=== PATIENT | female | born 1930 | race Caucasian/White ===

== ENCOUNTER 2017-01-26 22:39 | Observation (INO) | payer MEDICARE, OTHER ==
[2017-01-26 23:15] LABS: #Eosinphils 0.2 thou/uL (0.0-0.7); #Lymphocytes 1.8 thou/uL (1.20-3.40); #Monocytes 0.5 thou/uL (0.11-0.59); #Neutrophils 12.7 thou/uL (1.40-6.50); %Basophils 0.1 % (0.0-1.0); %Eosinophils 1.5 % (0.0-10.0); %Lymphocytes 11.7 % (21.0-51.0); Hematocrit 41.6 % (36.0-47.0); Mean Platelet Volume 7.9 fL (7.4-10.4); Red Blood Cell (RBC) Count 4.39 mill/uL (4.20-5.40); White Blood Cell (WBC) Count 15.2 thou/uL (4.8-10.8)
[2017-01-26 23:27] LABS: PTT 25.1 SEC (22.9-36.1); Prothrombin Time 12.3 SEC (12.0-14.7)
[2017-01-26 23:37] LABS: ALT (SGPT) 25 U/L (8-55); AST (SGOT) 33 U/L (5-34); Alkaline Phosphatase 57 U/L (40-150); Anion Gap 15 mmol/L (10-20); BUN (Urea Nitrogen) 21 mg/dL (9.8-20.1); Bilirubin, Total 0.2 mg/dL (0.2-1.2); Calc. Creatinine Clearance 0 mL/min (70-130); Calcium 9.1 mg/dL (7.8-10.44); Carbon Dioxide 26 mmol/L (23-31); Chloride 101 mmol/L (98-107); Estimated GFR-MDRD 71; Globulin 3.5 g/dL (2.4-3.5); Protein, Total 7.6 g/dL (6.0-8.3)
[2017-01-26 23:41] LABS: Troponin I Less than 0.010 ng/mL (< 0.028)
[2017-01-27] MEDS ORDERED: hydrALAZINE 20 MG/ML VIAL ONE (00:29)
[2017-01-27 00:42] LABS: Lactic Acid - Sepsis 2.4 mmol/L (0.5-2.2)
[2017-01-27] MEDS ORDERED: Ondansetron HCl/PF 4 MG/2 ML Vial ONE (00:58)
[2017-01-27 02:28] LABS: Bilirubin Negative (Negative); Blood, Urine Negative (Negative); Glucose, Urine (Dipstick) 100 mg/dL (Negative); Ketone, Urine Trace mg/dL (Negative); Nitrite Negative (Negative); Protein, Urine (Dipstick) Negative (Neg-Trace); Urobilinogen 0.2 mg/dL (0.2-1.0)
[2017-01-27 02:34] LABS: Troponin I Less than 0.010 ng/mL (< 0.028)
[2017-01-27] MEDS ORDERED: cloNIDine 0.1 MG TAB PO PRN (03:05)
[2017-01-27] MEDS ORDERED: HumaLOG 300 UNITS/3 ML VIAL SC PRN ×2 (03:05)
[2017-01-27] MEDS ORDERED: Dextrose 5% in Water 1,000 ML IV PRN ×2 (03:05→07:43)
[2017-01-27] MEDS ORDERED: hydrALAZINE 20 MG/ML VIAL SLOW IVP PRN (03:05)
[2017-01-27] MEDS ORDERED: Dextrose 50% Abboject 50 ML SYRINGE SLOW IVP PRN ×2 (03:05→07:43)
[2017-01-27] MEDS ORDERED: Ondansetron ODT 4 MG TAB PO PRN (03:05)
[2017-01-27] MEDS ORDERED: Zolpidem Tartrate 5 MG TAB PO PRN (03:18)
[2017-01-27] MEDS: NS 0.9% w/ 40 MEQ KCL 1,000 ML IV SCH ×2 (03:47→17:02)
[2017-01-27 04:04] VITALS: BMI 25.1
--- NOTE | 2017-01-27 04:10 | HP ---
DATE OF ADMISSION: 01/27/2017 PRIMARY CARE PROVIDER: Dr. Slaughter at [facility], [place]. CHIEF COMPLAINT: Nausea and vomiting. HISTORY OF PRESENT ILLNESS: This is an 86-year-old female who presents to [facility] complaining of nausea, vomiting, and dizziness over the last 24 to 48 hours. The patient states the symptoms began somewhat abruptly with dizziness, nausea, vomiting, and some diar chirag. The patient denied any specific exposure history or sick contacts. The patient denied any sp ecific travel history, fever, chills, or trauma. The patient denied any hematemesis or melena. The patient states that she was recently placed on a new blood pressure medication by her primary care provider, but is unsure of the name of the medication. The patient denied any recent antibiotic exp osure or recent surgical procedures. The patient states she did not take any home remedies to relie ve her symptoms and presented to the emergency room for evaluation. In the emergency room, the sukhwinder ent underwent general evaluation and noted with elevated blood pressure 216/97. The patient receive d clonidine with overall improvement in blood pressure trend. The patient underwent CT imaging of t abdomen and pelvis showing no acute intraabdominal findings. The patient received IV normal sali ne x500 mL in addition to Zofran and hydralazine. The patient was transferred to the [facility] for further evaluation. PAST MEDICAL HISTORY: 1. Hypertension, labile. 2. Hyperlipidemia. 3. Hypothyroidism. 4. Diabetes mellitus type 2. 5. Gastroesophageal reflux. PAST SURGICAL HISTORY: 1. Status post hysterectomy. 2. Status post appendectomy. 3. Status post tubal with salpingectomy. 4. Status post left breast lumpectomy. CURRENT MEDICATIONS: 1. Bisoprolol/HCTZ 5/6.25 mg 1 tab p.o. b.i.d. 2. Aspirin 81 mg 1 tab p.o. daily. 3. Lipitor 10 mg p.o. daily. 4. Levothyroxine 100 mcg 1 tab p.o. daily. 5. Metformin 500 mg p.o. b.i.d. 6. Protonix 40 mg 1 tab p.o. daily. 7. Tramadol 50 mg p.o. q.4 to 6 hours p.r.n. ALLERGIES: No known drug allergies. FAMILY HISTORY: Positive for hypertension. SOCIAL HISTORY: The patient resides in [place], [place]. Lives independently. No current alcohol, tob acco or illicit drug use. Retired. REVIEW OF SYSTEMS: The following complete review of systems was negative, unless otherwise mentione d in the HPI or below: Constitutional: Weight loss or gain, ability to conduct usual activities. Skin: Rash, itching. Eyes: Double vision, pain. ENT/Mouth: Nose bleeding, neck stiffness, pain, tenderness. Cardiovascular: Palpitations, dyspnea on exertion, orthopnea. Respiratory: Shortness of breath, wheezing, cough, hemoptysis, fever or night sweats. Gastrointestinal: Poor appetite, abdominal pain, heartburn, nausea, vomiting, constipation, or diar chirag. Genitourinary: Urgency, frequency, dysuria, nocturia. Musculoskeletal: Pain, swelling. Neurologic/Psychiatric: Anxiety, depression. Allergy/Immunologic: Skin rash, bleeding tendency. Otherwise, negative except as stated per HPI. PHYSICAL EXAMINATION: VITAL SIGNS: On admission, blood pressure 216/97, pulse 71, respiratory rate 16, temperature 97.5 d egrees Fahrenheit, O2 saturation 95% on room air. GENERAL APPEARANCE: This is an 86-year-old female, alert and oriented x3, pleasant, in no acute distress. HEENT: Pupils are equal, round, and reactive to light and accommodation. Extraocular muscles are i ntact. No scleral icterus, no conjunctival injection. Nares patent. OP is clear. Oral mucosa dry . NECK: Supple, no cervical adenopathy, no thyromegaly, no carotid bruits, no JVD appreciated. Cervi usama spine with full active and passive range of motion. No meningeal signs appreciated. CHEST: Lungs are clear to auscultation bilaterally. CARDIOVASCULAR: S1, S2 with a 2/6 systolic ejection murmur loudest in the left upper sternal border . ABDOMEN: Rounded, soft, nontender, nondistended. Bowel sounds are positive in all four quadrants. There is no hepatosplenomegaly, no abdominal bruits, no rebound or guarding appreciated. EXTREMITIES: Warm and dry with fair turgor. No clubbing, cyanosis or asymmetric edema appreciated. Pulses palpable distally at the dorsalis pedis, posterior tibial, and popliteal arteries bilateral ly. Capillary refill less than 2 seconds. NEUROLOGIC: Cranial nerves II-XII are grossly intact. No focal or lateralizing signs appreciated. PERTINENT LABORATORY DATA AND X-RAY FINDINGS: Sodium 139, potassium 3.3, chloride 101, CO2 of 26, B UN 21, creatinine 0.77 with estimated GFR of 71, glucose 205. Lactic acid level 2.4, calcium 9.1, m agnesium level 1.5. LFTs within normal limits. Troponin I negative x1. BNP 84.3, albumin 4.1, lip ase 54. CBC showed a white blood cell count of 15.2, hemoglobin 13.6, hematocrit 42, platelet count 261 with 84% neutrophils. PT 12.3, INR 0.9, PTT 25.1. Urinalysis showed specific gravity 1.043. Portable chest x-ray dated 01/26/2017 by my interpretation shows chronic changes to bilateral lung f ields. No acute infiltrate identified. CT of the abdomen and pelvis dated 01/27/2017 showed no acu te intraabdominal process. EKG dated 01/26/2017 by my interpretation shows a sinus mechanism with r ates in the 70s. Attenuated R waves noted in the precordial leads. Left axis deviation. Voltage c riteria consistent with left ventricular hypertrophy. No acute ST-T wave changes noted. ASSESSMENT AND PLAN: 1. Nausea and vomiting. The patient will be placed on observation status. We will continue intrav enous normal saline with 40 mEq of KCl per liter at 75 mL per hour. Continue supportive measures. Antiemetics with Zofran 4 mg IV q.6 hours p.r.n. Suspect viral etiology. 2. Hypertensive urgency, resolving. We will resume home antihypertensive regimen once confirmed. We will provide clonidine and hydralazine p.r.n. systolic greater than or equal to 170. 3. Hypokalemia. Continue potassium chloride supplementation and repeat potassium level in the a.m. 4. Dehydration. Continue intravenous normal saline as stated previously. Encourage increased free water intake orally. 5. Diabetes mellitus type 2. Insulin sliding scale for reflexive coverage. Continue IV fluids as outlined previously. Accu-Cheks a.c. and at bedtime. 6. Leukocytosis with neutrophilia. Suspect demargination effect with presentation and nausea and v omiting. Repeat CBC in the a.m. No current evidence to suggest focal infectious process. 7. Hypothyroidism. Resume levothyroxine 100 mcg p.o. daily. 8. Prophylaxis. Sequential compression devices while in bed. Pepcid 20 mg p.o. b.i.d. 9. Code status is FULL. Surrogate medical decision maker is lEisa Shrestha.
[2017-01-27 04:24] LABS: Band 8 % (5-11); Hematocrit 40.3 % (36.0-47.0); Mean Platelet Volume 7.8 fL (7.4-10.4); Neutrophil 82 % (42-75); Red Blood Cell (RBC) Count 4.29 mill/uL (4.20-5.40); White Blood Cell (WBC) Count 11.6 thou/uL (4.8-10.8)
[2017-01-27 04:37] LABS: Anion Gap 11 mmol/L (10-20); BUN (Urea Nitrogen) 19 mg/dL (9.8-20.1); Calc. Creatinine Clearance 67 mL/min (70-130); Calcium 9.1 mg/dL (7.8-10.44); Carbon Dioxide 32 mmol/L (23-31); Chloride 100 mmol/L (98-107); Estimated GFR-MDRD 77
[2017-01-27 04:53] LABS: Troponin I Less than 0.010 ng/mL (< 0.028)
[2017-01-27] MEDS: Levothyroxine Sodium 100 MCG TAB PO SCH (06:18)
--- NOTE | 2017-01-27 07:41 | PDOC.PN ---
- Subjective Encounter Start Date: 01/27/17 Encounter Start Time: 07:00 Subjective: FEEL A LITTLE BETTER, BUT VOMITTED THIS AM - Objective Resuscitation Status: Resuscitation Status FULL:Full Resuscitation MAR Reviewed: Yes Vital Signs & Weight: Vital Signs (12 hours) Temp Pulse Resp BP BP Pulse Ox 01/27/17 07:17 98.3 F 84 14 154/84 H 92 L 01/27/17 04:09 97.8 F 86 18 01/27/17 03:47 86 142/74 H 01/27/17 02:20 97.8 F 85 18 176/79 H 96 Weight Weight 160 lb 6.4 oz I&O: 01/26/17 01/27/17 01/28/17 06:59 06:59 06:59 Intake Total 254.4 Balance 254.4 Result Diagrams: 01/27/17 03:56 01/27/17 03:56 Phys Exam - Physical Examination Constitutional: NAD HEENT: PERRLA, sclera anicteric, oral pharynx no lesions Neck: supple, full ROM Respiratory: no wheezing, clear to auscultation bilateral Cardiovascular: RRR BRII Gastrointestinal: soft, non-tender Musculoskeletal: no edema Neurological: non-focal, moves all 4 limbs Psychiatric: normal affect, A&O x 3 Skin: no rash Dx/Plan (1) Nausea & vomiting Code(s): R11.2 - NAUSEA WITH VOMITING, UNSPECIFIED Status: Acute (2) DM2 (diabetes mellitus, type 2) Status: Chronic Qualifiers: Diabetes mellitus complication status: with hyperglycemia (3) Hypothyroid Code(s): E03.9 - HYPOTHYROIDISM, UNSPECIFIED Status: Chronic (4) Labile hypertension Code(s): I10 - ESSENTIAL (PRIMARY) HYPERTENSION Status: Chronic - Plan cont current plan of care CONTINUE SUPPORTIVE CARE, POTASSIUM REPLETED * .
[2017-01-27] MEDS ORDERED: Insulin Regular 300 UNITS/3 ML VIAL SC PRN (07:43)
--- NOTE | 2017-01-27 08:56 | RAD ---
ONE VIEW CHEST: HISTORY: Chest pain. COMPARISON: 10/20/2012 FINDINGS: Atherosclerosis of the aorta. Normal cardiac silhouette. Pulmonary vessels and hilum are normal. Costophrenic angles are clear. No masses or consolidation. Hyperinflation with chronic changes are noted. No pneumothorax or osseous abnormalities. IMPRESSION: 1. Atherosclerosis. 2. Hyperinflation and chronic changes. 3. No acute cardiopulmonary process. POS: [facility]
[2017-01-27] MEDS: Famotidine 20 MG TAB PO SCH ×3 (09:20→20:58)
[2017-01-27] MEDS: Ondansetron HCl/PF 4 MG/2 ML Vial IVP PRN ×2 (09:20→17:31)
[2017-01-27] MEDS: Amlodipine 5 MG TAB PO SCH ×2 (09:20→09:37)
--- NOTE | 2017-01-27 09:20 | CT ---
PRELIMINARY REPORT/[facility]/EMERGENCY AFTER HOURS PROCEDURE: EXAM: CT Abdomen and Pelvis With Intravenous Contrast CLINICAL HISTORY: 86 years old, female; Signs and symptoms; Nausea and vomiting; Prior surgery; Patient HX: 86 yo wf. Pmh HTN, hld, dm2. 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 Reports associated diaphore sis. No history cad or CVA. States she felt at her baseline health prior to onset of symptoms. Recei sanchez zofran, nitro spray, and nitro past from ems due to elevated BP 220s systolic. Glucose was 220s per ems. Last seen by pcp within past week. BP was wnl per family. Has been titrating medication to keep under control. TECHNIQUE: Axial computed tomography images of the abdomen and pelvis with intravenous contrast. Coronal reformatted images were created and reviewed. CONTRAST: 95 mL of isovue 370 administered intravenously. COMPARISON: No relevant prior studies available. FINDINGS: Lower thorax: Small hiatal hernia. ABDOMEN: Liver: Hepatic attenuation suggesting steatosis. Gallbladder and bile ducts: Unremarkable. Pancreas: Normal. Spleen: Normal. Adrenals: Normal. Kidneys and ureters: Normal. Stomach and bowel: Unremarkable. No obstruction. Appendix: Not visualized. PELVIS: Bladder: Unremarkable. Reproductive: Hysterectomy. ABDOMEN and PELVIS: Intraperitoneal space: No free air. No significant fluid collection. Bones/joints: Unremarkable. No acute fracture. Soft tissues: Unremarkable. Vasculature: Unremarkable. Lymph nodes: Unremarkable. No enlarged lymph nodes. IMPRESSION: No acute findings. Thank you for allowing us to participate in the care of your patient. Dictated and Authenticated by: Linden Ribera MD 01/27/2017 1:19 AM Central Time ([place] \[place]\ [place]) FINAL REPORT CT ABDOMEN ANDP LEONIDES WITH IV CONTRAST: Date: 01/27/17 FINDINGS/IMPRESSION: I agree with the preliminary report given by Dr. Linden Ribera of [facility]. POS: [facility]
[2017-01-27] MEDS: metFORMIN 500 MG TAB PO SCH ×2 (09:37→17:47)
[2017-01-27] MEDS: Enalaprilat Dihydrate 1.25 MG/ML VIAL SLOW IVP SCH ×3 (12:56→23:36)
[2017-01-27] MEDS ORDERED: ISOVUE-370 76%-LOCM 1 ML ONE (15:00)
[2017-01-27] MEDS ORDERED: Sodium Chloride 0.9% 1,000 ML IV SCH (16:45)
[2017-01-27] MEDS: Acetaminophen 500 MG TAB PO PRN (20:58)
[2017-01-28] MEDS: Levothyroxine Sodium 100 MCG TAB PO SCH (05:32)
[2017-01-28] MEDS: Enalaprilat Dihydrate 1.25 MG/ML VIAL SLOW IVP SCH ×2 (05:32→12:29)
[2017-01-28] MEDS: Amlodipine 5 MG TAB PO SCH (08:16)
[2017-01-28] MEDS: metFORMIN 500 MG TAB PO SCH (08:16)
[2017-01-28] MEDS: Famotidine 20 MG TAB PO SCH (08:16)
[2017-01-28] MEDS ORDERED: Venlafaxine HCl XR 75 MG CAP PO SCH (09:00)
[2017-01-28] MEDS ORDERED: Amlodipine 5 MG TAB PO SCH ×2 (12:36→13:00)
--- NOTE | 2017-01-28 12:53 | PDOC.PN ---
- Subjective Encounter Start Date: 01/28/17 Encounter Start Time: 12:50 Patient seen at bedside. No overnight events, N/V has improved. - Objective Resuscitation Status: Resuscitation Status FULL:Full Resuscitation Vital Signs & Weight: Vital Signs (12 hours) Temp Pulse Resp BP BP Pulse Ox 01/28/17 12:29 165/97 H 01/28/17 11:48 98.7 F 70 20 162/89 H 93 L 01/28/17 08:16 72 165/97 H 01/28/17 08:00 98.6 F 72 18 01/28/17 07:53 98.6 F 72 18 165/97 H 92 L 01/28/17 04:25 98.4 F 74 18 157/76 H 95 Weight Admit Weight 160 lb 6.4 oz Weight 165 lb 9.604 oz I&O: 01/27/17 01/28/17 01/29/17 06:59 06:59 06:59 Intake Total 254.4 1746 240 Output Total 1 Balance 254.4 1746 239 Result Diagrams: 01/27/17 03:56 01/27/17 03:56 Additional Labs: Accuchecks 01/28/17 01/28/17 01/27/17 11:12 06:02 20:38 POC Glucose 114 H 144 H 124 H 01/27/17 15:55 POC Glucose 112 H Phys Exam - Physical Examination Constitutional: NAD HEENT: moist MMs Neck: no JVD Respiratory: no rales Cardiovascular: RRR Gastrointestinal: soft Musculoskeletal: pulses present Neurological: moves all 4 limbs Psychiatric: A&O x 3 Skin: no rash Dx/Plan (1) Nausea & vomiting Code(s): R11.2 - NAUSEA WITH VOMITING, UNSPECIFIED Status: Resolved (2) DM2 (diabetes mellitus, type 2) Status: Chronic Qualifiers: Diabetes mellitus complication status: with hyperglycemia (3) Labile hypertension Code(s): I10 - ESSENTIAL (PRIMARY) HYPERTENSION Status: Chronic - Plan cont current plan of care, plan discussed w/ family, out of bed/ambulate * D/C IV Fluids. * Transition Lisinopril to PO * Increase Norvasc * OOB/Ambulate * Possible D/C This afternoon
[2017-01-28] MEDS: Acetaminophen 500 MG TAB PO PRN (13:59)
[2017-01-28 15:36] VITALS: BP 160/81; TEMP 98.9
--- NOTE | 2017-01-28 19:20 | DIS ---
DATE OF ADMISSION: 01/27/2017 DATE OF DISCHARGE: 01/28/2017 DISCHARGE DISPOSITION: Home. DISCHARGE FOLLOWUP: With Dr. Slaughter as an outpatient. DISCHARGE DIAGNOSES: 1. Hypertensive urgency, resolved. 2. Nausea and vomiting secondary to suspected viral gastroenteritis. 3. Diabetes mellitus type 2. 4. Hypothyroidism. 5. Hyperlipidemia. 6. Gastroesophageal reflux disease. DISCHARGE MEDICATIONS: 1. Atorvastatin 40 mg p.o. daily. 2. Enalapril 5 mg p.o. daily. This is new. 3. Levothyroxine 100 mcg p.o. daily. 4. Protonix 40 mg p.o. b.i.d. 5. Zolpidem 5 mg p.o. at bedtime. 6. Norvasc 5 mg p.o. daily. This is new. 7. Glucophage 500 mg p.o. b.i.d. INPATIENT CONSULTATIONS: None. INPATIENT PROCEDURES: None. INPATIENT RADIOGRAPHIC EXAMINATIONS: 1. 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 2. CT of the abdomen and pelvis, which revealed no acute findings. BRIEF HOSPITAL COURSE: Ms. Angela Erwin is an 86-year-old female who presented to the emergenc y room complaining of nausea, vomiting, and dizziness over the last 24 hours prior to admission. Sh e denied any hematemesis or melena. In the emergency room, she was noted to have elevated blood pre ssure over 200 systolic. She received clonidine and her blood pressure improved. In addition, due to her nausea, vomiting, and dizziness, she received Zofran, hydralazine, and normal saline. She wa s then transferred to the observation unit for further evaluation. The patient after getting antiem etics, as well as IV fluids, improved dramatically. She no longer had any further nausea or vomitin g. It is suspected that this may be gastroenteritis secondary to a viral etiology. In addition, as the patient was able to swallow, she was able to receive oral medications for hypertension. She wa s started on enalapril as well as Norvasc and she has tolerated this well. Her blood pressure has b een relatively controlled. She will go home on these medications. She is feeling much better. She has been walking around without any difficulty. She has tolerated her p.o. intake without any diff iculties. She is clinically appropriate for discharge home and discharged home later today in a sta ble condition. DISCHARGE DIET: Diabetic. ACTIVITY: As tolerated. RESTRICTIONS: None. CODE STATUS: FULL CODE. ALLERGIES: CODEINE. DISCHARGE FOLLOWUP: With Dr. Slaughter. I have explained all this to the patient at the bedside. She is agreeable to the plan of discharge. All questions have been answered. All this was explained to the family at the bedside as well. Total time required to prepare for discharge 32 minutes.
[2017-01-29] MEDS ORDERED: Amlodipine 5 MG TAB PO SCH (09:00)
== END 2017-01-28 16:10 | disposition home or self-care (01) ==
LOC: ERS 22:39 → 2SE 01-27 01:00
PROVIDERS: ADMIT Family Medicine; ATTEND Family Medicine
DX: I16.0 Hypertensive urgency (principal); R11.2 Nausea with vomiting, unspecified; E11.9 Type 2 diabetes mellitus without complications; E03.9 Hypothyroidism, unspecified; E78.5 Hyperlipidemia, unspecified; K21.9 Gastro-esophageal reflux disease without esophagitis; I10 Essential (primary) hypertension; E87.6 Hypokalemia; E86.0 Dehydration; D72.829 Elevated white blood cell count, unspecified; Z79.84 Long term (current) use of oral hypoglycemic drugs; Z79.899 Other long term (current) drug therapy; Z88.5 Allergy status to narcotic agent; Z90.710 Acquired absence of both cervix and uterus; Z90.49 Acquired absence of other specified parts of digestive tract; Z90.79 Acquired absence of other genital organ(s); Z98.890 Other specified postprocedural states; Z87.891 Personal history of nicotine dependence; Z87.59 Personal history of other complications of pregnancy, childbirth and the puerperium; Z82.49 Family history of ischemic heart disease and other diseases of the circulatory system
CPT/HCPCS: 71010; 74177; 80048; 80053; 81003; 82553; 82962 ×2; 83605; 83690; 83735; 83880; 84443; 84484 ×3; 85007; 85025; 85027; 85610; 85730; 93005; 96361 ×3; 96374; 96375 ×2; 96376 ×2; 97139; 99285; G0378; 36415; 36416; A4216; J0360; J2405

== ENCOUNTER 2019-02-12 14:08 | Outpatient (CLI) | payer MEDICARE, OTHER ==
[2019-02-12 15:07] LABS: #Basophils 0.1 thou/uL (0.0-0.2); #Eosinphils 0.4 thou/uL (0.0-0.7); #Lymphocytes 1.8 thou/uL (1.20-3.40); #Monocytes 0.6 thou/uL (0.11-0.59); #Neutrophils 4.2 thou/uL (1.40-6.50); %Basophils 1.2 % (0.0-1.0); %Eosinophils 5.2 % (0.0-10.0); %Lymphocytes 25.5 % (21.0-51.0); %Monocytes 8.4 % (0.0-10.0); %Neutrophils 59.8 % (42.0-75.0); Hemoglobin 12.5 g/dL (12.0-16.0); Mean Corpuscular HGB CONC 32.9 g/dL (32.0-36.0); Mean Corpuscular Hemoglobin 30.8 pg (27.0-31.0); Mean Corpuscular Volume 93.5 fL (78.0-98.0); Mean Platelet Volume 7.7 fL (7.4-10.4); Platelet Count 317 thou/uL (130-400); RBC Distribution Width 12.6 % (11.5-14.5); Red Blood Cell (RBC) Count 4.06 mill/uL (4.20-5.40)
--- NOTE | 2019-02-12 15:12 | RAD ---
XR Chest Pa Lat STANDARD HISTORY: Preop COMPARISON: None. FINDINGS: Heart size within normal limits. Mediastinal structures appear unremarkable. The lungs are clear of infiltrates. There are mild arthritic changes of the spine. IMPRESSION: No active intrathoracic disease.
[2019-02-12 15:26] LABS: ALT (SGPT) 13 U/L (8-55); AST (SGOT) 23 U/L (5-34); Albumin 4.4 g/dL (3.4-4.8); Alkaline Phosphatase 50 U/L (40-110); Anion Gap 17 mmol/L (10-20); BUN (Urea Nitrogen) 16 mg/dL (9.8-20.1); Bilirubin, Total 0.2 mg/dL (0.2-1.2); Calc. Creatinine Clearance 0 mL/min (70-130); Calcium 9.2 mg/dL (7.8-10.44); Carbon Dioxide 24 mmol/L (23-31); Chloride 104 mmol/L (98-107); Estimated GFR-MDRD 53; Globulin 2.7 g/dL (2.4-3.5); Glucose 176 mg/dL (83-110); Protein, Total 7.1 g/dL (6.0-8.3); Sodium 141 mmol/L (136-145)
--- NOTE | 2019-02-15 16:43 | EKG ---
Test Reason : Blood Pressure : / mmHG Vent. Rate : 074 BPM Atrial Rate : 074 BPM P-R Int : 204 ms QRS Dur : 086 ms QT Int : 406 ms P-R-T Axes : 047 -43 107 degrees QTc Int : 450 ms Normal sinus rhythm Left axis deviation Anteroseptal infarct , age undetermined Abnormal ECG When compared with ECG of 26-JAN-2017 23:03, Anteroseptal infarct is now Present Confirmed by DR. Johan MONTIEL ([id number]) on 02/15/2019 4:43:34 PM Referred By: AISHA Confirmed By:DR. Johan MONTIEL
== END 2019-02-12 14:09 | disposition home or self-care (01) ==
LOC: LABBT 14:08
PROVIDERS: ATTEND Internal Medicine Cardiovascular Disease
DX: Z01.818 Encounter for other preprocedural examination (principal); I35.0 Nonrheumatic aortic (valve) stenosis
CPT/HCPCS: 71046; 80053; 85025; 93005; 93010

== ENCOUNTER 2019-02-16 05:52 | Day surgery (SDC) | payer MEDICARE, OTHER ==
[2019-02-12 14:22] VITALS: BMI 23.1
[2019-02-16] MEDS ORDERED: Heparin 10,000 UNITS/1 ML VIAL ONE (06:30)
[2019-02-16] MEDS ORDERED: Lidocaine 1% (PF) 30 ML VIAL ONE ×2 (06:30→07:04)
[2019-02-16] MEDS ORDERED: Midazolam HCl 2 mg/2 ml Vial ONE (07:07)
[2019-02-16] MEDS ORDERED: Fentanyl 100 MCG/2 ML VIAL ONE (07:08)
[2019-02-16] MEDS ORDERED: Protamine Sulfate 50 MG/5 ML VIAL ONE (07:55)
[2019-02-16] MEDS ORDERED: Acetaminophen 500 MG TAB ONE (08:33)
[2019-02-16] MEDS ORDERED: Iopamidol 370 76% 100 ML VIAL ONE (13:11)
[2019-02-16] MEDS ORDERED: Iopamidol 370 76% 50 ML VIAL FS ONE (13:12)
== END 2019-02-16 16:03 | disposition home or self-care (01) ==
LOC: CCL 05:52
PROVIDERS: ATTEND Internal Medicine Cardiovascular Disease
PROC: 4A023N8 Measurement of Cardiac Sampling and Pressure, Bilateral, Percutaneous Approach (ICD-10-PCS; principal; 2019-02-16)
PROC: B2111ZZ Fluoroscopy of Multiple Coronary Arteries using Low Osmolar Contrast (ICD-10-PCS; 2019-02-16)
DX: I25.10 Atherosclerotic heart disease of native coronary artery without angina pectoris (principal); I08.0 Rheumatic disorders of both mitral and aortic valves; I10 Essential (primary) hypertension; E11.9 Type 2 diabetes mellitus without complications; E78.00 Pure hypercholesterolemia, unspecified; E78.5 Hyperlipidemia, unspecified; Z79.82 Long term (current) use of aspirin; Z79.84 Long term (current) use of oral hypoglycemic drugs; Z79.899 Other long term (current) drug therapy; Z88.5 Allergy status to narcotic agent
CPT/HCPCS: 93460; 93567; 99152; 99153; C1769; J1644; J2001; J2250; J2720; J3010; Q9967

== ENCOUNTER 2019-02-18 16:02 | Emergency (ER) | payer MEDICARE, OTHER ==
[2019-02-18 16:55] LABS: #Eosinphils 0.4 thou/uL (0.0-0.7); #Lymphocytes 1.9 thou/uL (1.20-3.40); #Monocytes 0.6 thou/uL (0.11-0.59); #Neutrophils 3.2 thou/uL (1.40-6.50); %Basophils 0.7 % (0.0-1.0); %Eosinophils 5.9 % (0.0-10.0); %Lymphocytes 31.1 % (21.0-51.0); %Monocytes 9.3 % (0.0-10.0); Hemoglobin 10.8 g/dL (12.0-16.0); Mean Corpuscular HGB CONC 32.9 g/dL (32.0-36.0); Mean Corpuscular Hemoglobin 30.6 pg (27.0-31.0); Mean Platelet Volume 7.6 fL (7.4-10.4); Platelet Count 255 thou/uL (130-400); RBC Distribution Width 12.6 % (11.5-14.5); Red Blood Cell (RBC) Count 3.53 mill/uL (4.20-5.40)
[2019-02-18 17:19] LABS: ALT (SGPT) 10 U/L (8-55); AST (SGOT) 22 U/L (5-34); Albumin 4.1 g/dL (3.4-4.8); Alkaline Phosphatase 48 U/L (40-110); Anion Gap 12 mmol/L (10-20); BUN (Urea Nitrogen) 13 mg/dL (9.8-20.1); Bilirubin, Total 0.2 mg/dL (0.2-1.2); Calc. Creatinine Clearance 0 mL/min (70-130); Calcium 8.7 mg/dL (7.8-10.44); Carbon Dioxide 29 mmol/L (23-31); Chloride 105 mmol/L (98-107); Estimated GFR-MDRD 67; Globulin 2.9 g/dL (2.4-3.5); Glucose 123 mg/dL (83-110); Sodium 142 mmol/L (136-145)
--- NOTE | 2019-02-18 19:35 | ULT ---
Arterial duplex sonogram right groin HISTORY: Right groin pain. Recent catheterization. FINDINGS: Good color and spectral Doppler flow within the right common femoral artery and vein. No evidence of hematoma or pseudoaneurysm.
== END 2019-02-18 20:08 | disposition home or self-care (01) ==
LOC: ERS 16:02
DX: I97.638 Postprocedural hematoma of a circulatory system organ or structure following other circulatory system procedure (principal); E11.9 Type 2 diabetes mellitus without complications; E78.5 Hyperlipidemia, unspecified; E78.00 Pure hypercholesterolemia, unspecified; J45.909 Unspecified asthma, uncomplicated; I10 Essential (primary) hypertension; F32.9 Major depressive disorder, single episode, unspecified; Z79.899 Other long term (current) drug therapy; Z79.84 Long term (current) use of oral hypoglycemic drugs; Z79.82 Long term (current) use of aspirin
CPT/HCPCS: 36415; 80053; 85025; 93926